=== PATIENT | male | born 1955 | race Caucasian/White ===

== ENCOUNTER 2016-05-24 09:58 | Emergency (ER) | payer MEDICAID ==
--- NOTE | 2016-05-24 10:10 | ED Physician Chart ---
Chief Complaint/HPI - Patient Information Date Seen:: 05/24/16 Time Seen:: 10:05 Chief Complaint:: PATIENT SUSTAINED HEAD AND NECK INJURY IN FALL FROM ROOF History of Present Illness:: This 61-year-old male states that he was on the roof trying to separate 2 pieces of lumber from each other when he lost his balance and fell approximately 11 feet with his head striking concrete. The patient is unsure if he had any loss of consciousness at the time of the fall. The fellow worker who brought him in do not witness the fall. The patient is complaining of a headache and posterior neck pain. Denies any other associated injuries. Review of Systems - Review of Systems General/Constitutional: No fever, No chills, No weakness, No diaphoresis, No edema Skin: No skin lesions, No rash, No bruising Head: No light-headedness, Other (patient had a mild headache at the time of the fall.) Eyes: No loss of vision, No pain, No diplopia ENT: No earache, No nasal drainage, No sore throat Neck: Neck pain, No swelling, No stiffness, No mass noted Cardio Vascular: No chest pain, No palpitations Pulmonary: No SOB, No cough, No sputum GI: No nausea, No vomiting, No diarrhea, No pain, No hematemesis G/U: No dysuria, No frequency, No hematuria Musculoskeletal: Bone or joint pain, No back pain, No muscle pain Endocrine: No polyuria, No polydipsia Psychiatric: Prior psych history, No depression, No suicidal ideation Hematopoietic: No bruising Allergic/Immuno: No urticaria, No angioedema Neurological: No syncope, No focal symptoms, No weakness, No paresthesia, Headache, No seizure, No dizziness, No confusion, No vertigo Past Medical History - Past Medical History Past Medical History: HTN, DM, Other Social History: Non Smoker, No Drug Use, Employed 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 Surgical History: Appendectomy Psychiatricy History: None Family Medical History - Family Member Mother Age: 90 Ethnicity: Living Status: Still Living Hx Family Diabetes: Yes Physical Exam - Physical Examination General/Constitutional: Awake, Well-developed, well-nourished, Alert, GCS 15, Non-toxic appearing, Ambulatory Other Gen/Cons comments:: Mild headache from the complained of injury. Other Head comments:: Patient has 2 full-thickness lacerations over the occipital left region. The more anterior laceration is 4 cm in length and the more posterior laceration is an estimated 7 cm in length. On digital exploration no step-offs were appreciated and no foreign bodies were present. The lacerations are otherwise clean. Eyes: Lids, conjuctiva normal, PERRL, EOMI Other Eyes comments:: No nystagmus. Skin: Nl inspection, No rash, No ecchymosis, Well hydrated, No lymphadenopathy Other Skin comments:: Other than the 2 above described lacerations the patient has no skin signs of trauma. ENMT: External ears, nose nl, TM canals nl (no lopez sign and no hemotympanum.) , Nasal exam nl, Lips, teeth, gums nl, Oropharynx nl, Tonsils nl Other ENMT comments:: The patient's teeth are in very good repair and no evidence of acute trauma. Neck: No JVD, No mass, No stridor Other Neck comments:: The patient has mild tenderness on palpation over the entire course of the cervical spine. There is mild paraspinous muscle tenderness as well. Respiratory: Nl effort/Exclusion, No Wheeze/Rhonchi/Rales Cardio Vascular: RRR, No murmur, gallop, rubs, NL S1 S2 Other Cardio Vascular comments:: Patient has good pulses in all 4 extremities. GI: No tenderness/rebounding/guarding, No organomegaly, No hernia, Normal BS's, Nondistended, No mass/bruits, No McBurney tenderness Other GI comments:: Rectal exam was deferred at my discretion. : No CVA tenderness, NL external genitalia, No discharge Extremities: No tenderness or effusion, Full ROM, normal strength in all extremities, No edema Other Extremities comments:: The patient has full range of motion of all major joints with no deformities or evidence of acute injury. Neuro/Psych: Alert/oriented, DTR's symmetric, Normal sensory exam, Normal motor strength, Judgement/insight normal, Mood normal, No focal deficits Other Neuro/Psych comments:: Patient was not ambulated due to concern over C-spine stability. Labs/Radiology/EKG Results - Lab Results Results: RESULTS OF THE CT HEAD SCAN SHOWED NO EVIDENCE OF IC HEMORRHAGE OR SKULL FRACTURE. RESULTS OF THE CT C-SPINE SHOWED NO ACUTE FRACTURES OR DISLOCATIONS. THERE WAS MODERATE EVIDENCE OF CHRONIC DEGENERATIVE DISC DISEASE. Assessment - Assessment General Assessment: CASE SUMMARY: This 61 year old male sustained head and neck injuries after a fall from the roof of a house he was working on. He was attempting to pry apart two pieces of lumber when he lost his balance and fell off the roof, landing about 10 feet below on concrete. It is unclear if the lost consciousness. His injuries were limited to his head and neck by physical exam. CT Exam of the head and neck were negative for brain or spinal trauma. The lacerations were closed with a total of 12 glen. His tetanus status was updated. The patient was awake, in minimal distress and ambulatory at the time of discharge. He was discharged with a prescription for both ibuprofen 600 mg and [place] 10/325, #10 to be used for severe pain. He was given the usual precautions regarding mixing with alcohol and driving. He was advised to return to the ER in 2 days for a wound check and in 10 days for staple removal. MDM DDX for fall from karie of 10 feet: NO long bone fractures based on History and physical exam. NO Intracranial bleeding based on Negative CT of head. NO skull fracture base on negative CT of the Head. NO C-Spine fractures based on the Negative CT of the C-Spine. PROCEDURE: SCALP LACERATION REPAIRS: The scalp lacerations were anesthetized with 15 cc of !% Lidocaine. Wounds were explored digitally with no identification of foreign bodies or skulls Step offs. The wounds were flushed with 100cc of normal saline. The skin of the wound margins were cleaned with Betadine. The wound margins were closed using 12 glen. There was no active bleeding. the margins were then dressed with Neosporin. The patients check the status was updated. The patient tolerated the procedure well. ED Septic Shock - . Is Septic Shock (SBP<90, OR Lactate>4 mmol\L) present?: No Reassessment (Disposition) - Reassessment Reassessment Condition:: Improved - Diagnosis Diagnosis:: FALL FROM A KARIE. SIMPLE SCALP LACERATION, TOTAL OF 12 CM IN LENGTH. RETURN TO THE ED IN 10 DAYS FOR SUTURE REMOVAL OR SOONER IF YOUR SYMPTOMS WORSEN. PRERCAUTIONS: TAKE JOSE LUIS IBUPROFEN FOR MILD TO MODERATE PAIN. USE THE NORCO FOR MORE SEVERE PAIN. DON'T MIX THE NORCO WITH ALCOHOL OR TAKE IT WITHIN 6 HOURS OF DRIVING OR ACTIVITIES REQUIRING ALERTNESS (THIS MEANS WORKING ABOVE THE GROUND OR WITH POWER TOOLS. - Aftercare/Follow up Instructions Aftercare/Follow-Up Instructions:: Counseled pt regarding lab results/diagnosis & need follow up, Refer to Discharge Instructions - Patient Disposition Discharge/Transfer:: Home ED Discharge Plan - Patient Disposition Admit/Discharge/Transfer: PT DISCHARGED HOME Condition at Disposition: Stable Instructions: Stab Wound, Head Injury, Adult, Laceration Care, Child
--- NOTE | 2016-05-24 13:58 | Diagnostic Imaging Report ---
Head CT without intravenous contrast Indication: Trauma Comparison: None Technique: Axial images were obtained from the vertex to the skull base without IV contrast. Coronal reconstructions were made. Total DLP: 671, CTDI35 FINDINGS: Images of the brain obtained without contrast demonstrate no evidence of acute hemorrhage. Mild low attenuation changes are seen along the right frontal subcortical white matter. The ventricles and basal cisterns are patent. No mass effect or midline shift. No evidence of a skull fracture. There is soft tissue swelling and subcutaneous glen along the left posterior scalp. The visualized paranasal sinuses are clear. IMPRESSION: No evidence of acute intracranial hemorrhage Soft tissue swelling of the left posterior scalp. No evidence of a skull fracture Mild right frontal lobe low attenuation changes which is indeterminate and may be due to previous ischemia possibly chronic. Please correlate with clinical findings and previous exams. If indicated, short-term follow-up MRI would provide additional detail and assessment.
--- NOTE | 2016-05-24 14:02 | Diagnostic Imaging Report ---
CT cervical spine without IV contrast HISTORY: Trauma COMPARISON: None Technique: Axial images were obtained from the skull base to the upper thoracic spine without IV contrast. Multiplanar reconstructions were made. Total DLP: 588, CTDI25 FINDINGS: Images of the cervical spine obtained without contrast demonstrate no evidence of acute fracture or subluxation. There may have been old fracture involving the posterior dorsal spinous process of T1. Degenerative changes are seen with advanced facet degenerative changes involving the right C2/C3 and C3/C4 facets. There is partial fusion of the C2 and C3 vertebral bodies. No prevertebral soft tissue swelling. Chronic changes of the lung apices are noted. Mild atherosclerosis is noted. IMPRESSION: No evidence of acute fracture or subluxation. Possible old fracture involving the T1 dorsal transverse process. Degenerative changes.
== END 2016-05-24 14:30 | disposition home or self-care (01) ==
LOC: ER 09:58
DX: S01.01XA Laceration without foreign body of scalp, initial encounter (principal); I10 Essential (primary) hypertension; E11.9 Type 2 diabetes mellitus without complications; W17.89XA Other fall from one level to another, initial encounter; Y93.89 Activity, other specified; Y92.89 Other specified places as the place of occurrence of the external cause; Y99.8 Other external cause status
CPT/HCPCS: 70450-TC; 72125-TC; 82948-90; A4217; J2001; Z7502